=== PATIENT | male | born 1980 | race Caucasian/White ===

== ENCOUNTER 2023-09-24 14:42 | Emergency (ER) | payer MEDICAID ==
[2023-09-24 15:37] LABS: BASOPHILS % (AUTO) 0.5 %; EOSINOPHILS % (AUTO) 0.2 %; HCT - HEMATOCRIT 48.3 % (42.0-52.0); HGB - HEMOGLOBIN 16.4 g/dL (14.0-18.0); LYMPHOCYTES # (AUTO) 0.8 10^3/uL (1.5-3.5); LYMPHOCYTES % (AUTO) 12.3 %; MEAN CORPUSCULAR HEMOGLOBIN 32.2 pg (27.0-31.0); MEAN CORPUSCULAR VOLUME 94.9 fL (80.0-94.0); MEAN PLATELET VOLUME 11.4 fL (7.4-11.4); MONOCYTES # (AUTO) 0.5 10^3/uL (0.0-1.0); MONOCYTES % (AUTO) 8.3 %; NEUTROPHILS % (AUTO) 78.2 %; PLT - PLATELET COUNT 66 10^3/uL (130-450); RED BLOOD COUNT 5.09 10^6/uL (4.70-6.10); RED CELL DISTRIBUTION WIDTH 14.4 % (12.0-15.0); WHITE BLOOD COUNT 6.4 x10^3/uL (4.8-10.8)
[2023-09-24 15:48] LABS: ALBUMIN 5.1 g/dL (3.2-5.5)
[2023-09-24 15:53] LABS: ALBUMIN/GLOBULIN RATIO 1.6 (1.0-2.2); CALCIUM 9.9 mg/dL (8.5-10.3); CREATININE 0.7 mg/dL (0.6-1.3); POTASSIUM 3.8 mmol/L (3.5-4.5); TOTAL PROTEIN 8.3 g/dL (6.4-8.9)
[2023-09-24] MEDS ORDERED: SODIUM CHLORIDE 0.9% 1,000 ML IV STA (18:12)
[2023-09-24] MEDS ORDERED: ONDANSETRON 4 MG/2 ML VIAL IVP STA (18:12)
[2023-09-24 18:42] VITALS: O2SAT 100
--- NOTE | 2023-09-24 19:14 | ED Physician Documentation ---
History of Present Illness - Stated complaint Stated Complaint: NAUSEA,CHILLS,GENERAL WEAKNESS - Chief complaint Chief Complaint: Abd Pain - History obtained from History obtained from: Patient - Additonal information Additional information: The patient comes to the emergency department chief complaint of hot and cold flashes, nausea, nasal congestion, and cough over the last 3 days. He states has not been able to hold much of anything down due to his nausea. Patient has not measured any fevers at home. No abdominal pain. No diarrhea. He denies any other complaints at this time. No specific sick contacts. PD PAST MEDICAL HISTORY - Past Medical History Past Medical History: No - Past Surgical History Past Surgical History: No - Present Medications Home Medications: Ambulatory Orders Medication Instructions Recorded Confirmed Ondansetron Odt [Zofran] 4 mg TL Q6H PRN #14 tablet 09/24/23 - Allergies Allergies/Adverse Reactions: Allergies Allergy/AdvReac Type Severity Reaction Status Date / Time No Known Drug Allergies Allergy Verified 09/24/23 15:17 - Social History Does the pt smoke?: No Smoking Status: Never smoker Does the pt drink ETOH?: Yes ETOH Use: Beer Does the pt have substance abuse?: No PD ED PE NORMAL - Vitals Vital signs reviewed: Yes - General General: Alert and oriented X 3, No acute distress, Well developed/nourished - HEENT HEENT: Atraumatic, PERRL, EOMI, Moist mucous membranes - Neck Neck: Supple, no meningeal sign - Cardiac Cardiac: RRR, No murmur - Respiratory Respiratory: No respiratory distress, Clear bilaterally - Abdomen Abdomen: Soft, Non tender, Non distended - Derm Derm: Normal color, Warm and dry, No rash - Extremities Extremities: No deformity, No edema - Neuro Neuro: Alert and oriented X 3, Other (Grossly intact) - Psych Psych: Normal mood, Normal affect Results - Vitals Vitals: Vital Signs - 24 hr 09/24/23 09/24/23 18:41 20:14 Temperature 36.3 C L 36.3 C L Heart Rate 62 73 Respiratory 16 12 Rate Blood Pressure 154/82 H 143/75 H O2 Saturation 100 100 Oxygen O2 Source Room air - Labs Labs: Laboratory Tests 09/24/23 09/24/23 09/24/23 15:29 15:29 18:35 WBC 6.4 RBC 5.09 Hgb 16.4 Hct 48.3 MCV 94.9 H MCH 32.2 H MCHC 34.0 RDW 14.4 Plt Count 66 L MPV 11.4 Neut # (Auto) 5.0 Lymph # (Auto) 0.8 L [place] # (Auto) 0.5 Eos # (Auto) 0.0 Baso # (Auto) 0.0 Absolute Nucleated RBC 0.00 Nucleated RBC % 0.0 Sodium 129 L Potassium 3.8 Chloride 89 L Carbon Dioxide 13 L Anion Gap 27.0 H BUN 9 Creatinine 0.7 Estimated GFR (MDRD) 124 Glucose 93 Calcium 9.9 Total Bilirubin 2.0 H AST 94 H ALT 82 H Alkaline Phosphatase 66 Total Protein 8.3 Albumin 5.1 Globulin 3.2 Albumin/Globulin Ratio 1.6 Lipase 18 Nasal Adenovirus (PCR) NOT DETECTED Nasal B. parapertussis DNA (PCR) NOT DETECTED Nasal Coronavir 229E PCR NOT DETECTED Nasal Coronavir HKU1 PCR NOT DETECTED Nasal Coronavir NL63 PCR NOT DETECTED Nasal Coronavir OC43 PCR NOT DETECTED Nasal Enterovir/Rhinovir PCR NOT DETECTED Nasal Influenza B PCR NOT DETECTED Nasal Influenza A PCR NOT DETECTED Nasal Parainfluen 1 PCR NOT DETECTED Nasal Parainfluen 2 PCR NOT DETECTED Nasal Parainfluen 3 PCR NOT DETECTED Nasal Parainfluen 4 PCR NOT DETECTED Nasal RSV (PCR) NOT DETECTED Nasal B.pertussis DNA PCR NOT DETECTED Nasal C.pneumoniae (PCR) NOT DETECTED Michael Human Metapneumo PCR NOT DETECTED Nasal M.pneumoniae (PCR) NOT DETECTED Nasal SARS-CoV-2 (PCR) NOT DETECTED PD Medical Decision Making - ED course Complexity details: reviewed results, re-evaluated patient, considered differential, d/w patient ED course: The patient was worked up with laboratory studies and respiratory PCR panel. La bs were unremarkable. He was given a liter of normal saline and a dose of Zofran. Respiratory PCR panel was negative. We have discussed home management, as well as the usual indications for return. Departure - Departure Disposition: 01 Home, Self Care Clinical Impression: Viral syndrome Vomiting Qualifiers: Vomiting type: bilious vomiting Nausea presence: with nausea Qualified Code(s): R11.14 - Bilious vomiting Condition: Stable Instructions: ED Viral Syndrome, ED Nausea Vomiting Prescriptions: Ondansetron Odt [Zofran] 4 mg TL Q6H PRN #14 tablet PRN Reason: Nausea / Vomiting Comments: Your laboratory studies overall look fairly good. Your liver enzymes are slightly elevated, but this may be from the illness you have. Please follow-up with your primary doctor in a few weeks to have these rechecked. A prescription for nausea medication has been electronically transmitted to the [facility] pharmacy in [place], your pharmacy of choice on record. A respiratory PCR panel is pending at this time. You will be called with any significant positive results; alternatively, you may go to our hospital website at [email or web address], click on the "my [facility]" tab, and sign up for the patient portal. In this way, you can monitor your results from home. Please get plenty of rest and take clear liquids only until you have been without vomiting for 24 hours. You should let your stomach have a period of rest since you have been rehydrated with IV fluids here, and should avoid taking anything by mouth for the next 6 to 8 hours. After this, you may take very small amounts of clear liquids, as an 1-2 sips of water 1-2 ice chips. Wait 15 to 20 minutes to make sure that you do not vomit and if you do not vomit then you may take another dose of 1-2 sips or chips. Again, wait 15 or 20 minutes. If you are able to go through several cycles of this without vomiting, you may gradually bring the rounds of sips and chips closer together until you are able to take clear liquids without limitation. Once you have gone at least 24 hours with vomiting, you may reintroduce simple starches if you feel ready to eat a little something. These would include saltine or oyster crackers, or Ramen noodles. You may then advance your diet from there as tolerated. Forms: PCP List Discharge Date/Time: 09/24/23 20:14
[2023-09-24 19:59] LABS: B. PARAPERTUSSIS- RESP PCR PAN NOT DETECTED; B. PERTUSSIS- RESP PCR PANEL NOT DETECTED; C. PNEUMONIAE- RESP PCR PANEL NOT DETECTED; CORONAVIRUS 229E-RESP PCR NOT DETECTED; CORONAVIRUS HKU1-RESP PCR NOT DETECTED; CORONAVIRUS NL63-RESP PCR NOT DETECTED; CORONAVIRUS OC43-RESP PCR NOT DETECTED; HUMAN METAPNEUMOVIRUS NOT DETECTED; INFLUENZA A- RESP PCR PANEL NOT DETECTED; INFLUENZA B - RESP PCR PANEL NOT DETECTED; M. PNEUMONIAE- RESP PCR PANEL NOT DETECTED; PARAINFLUENZA VIRUS 1 NOT DETECTED; PARAINFLUENZA VIRUS 2 NOT DETECTED; PARAINFLUENZA VIRUS 3 NOT DETECTED; PARAINFLUENZA VIRUS 4 NOT DETECTED; RHINOVIRUS/ENTEROVIRUS NOT DETECTED; RSV- RESP PCR PANEL NOT DETECTED; SARS-CoV-2 -RESP PCR PANEL NOT DETECTED
[2023-09-24] MEDS ORDERED: ONDANSETRON ODT 4 MG Prepack 2 TL PRN (20:02)
[2023-09-24 20:16] VITALS: BP 143/75
== END 2023-09-24 20:14 | disposition home or self-care (01) ==
LOC: ED 14:42
DX: B34.9 Viral infection, unspecified (principal); Z11.52 Encounter for screening for COVID-19
CPT/HCPCS: 36415; 80053; 83690; 85025; 87633; 96374; 99283